=== PATIENT | male | born 1955 | race Caucasian/White ===

== ENCOUNTER 2021-07-13 08:48 | Emergency (ER) | payer MEDICARE, OTHER ==
[~2021-07-13] VITALS: Ht 177.8 cm; Wt 93.0 kg
[2021-07-13 10:08] LABS: CORONAVIRUS 2019 SARS-COV-2 NEGATIVE (NEGATIVE); INFLUENZA A NAA NEGATIVE (NEGATIVE)
== END 2021-07-13 10:18 | disposition home or self-care (01) ==
LOC: FER 08:48
PROVIDERS: Emergency Medicine
DX: J06.9 Acute upper respiratory infection, unspecified (principal); I10 Essential (primary) hypertension; Z20.822 Contact with and (suspected) exposure to COVID-19
CPT/HCPCS: 99283; U0002